=== PATIENT | male | born 1960 | race Caucasian/White ===

== ENCOUNTER 2018-12-14 07:07 | Emergency (ER) | payer MEDICARE ==
[~2018-12-14] VITALS: Ht 185.4 cm; Wt 83.2 kg
[2018-12-14 07:18] VITALS: BP 146/82
[2018-12-14] MEDS ORDERED: clonazePAM 0.5mg tablet PO STA (07:46)
[2018-12-14] MEDS ORDERED: OLANZapine 5mg rapidly disint. tablet PO ONE (07:50)
[2018-12-14] MEDS ORDERED: OLANZapine 2.5MG tablet PO SCH (07:50)
[2018-12-14] MEDS ORDERED: CLON-528 PO (08:18)
[2018-12-14] MEDS ORDERED: LAMO200T2 PO (08:18)
[2018-12-14] MEDS ORDERED: OLAN5TAB3 PO (08:18)
[2018-12-14] MEDS ORDERED: OLAN20TA3 PO (08:18)
== END 2018-12-14 08:34 | disposition home or self-care (01) ==
LOC: ER 07:08
DX: F29 Unspecified psychosis not due to a substance or known physiological condition (principal); F41.9 Anxiety disorder, unspecified; F25.9 Schizoaffective disorder, unspecified; F43.10 Post-traumatic stress disorder, unspecified; M19.90 Unspecified osteoarthritis, unspecified site; G89.29 Other chronic pain; M79.7 Fibromyalgia; Z88.6 Allergy status to analgesic agent; Z88.8 Allergy status to other drugs, medicaments and biological substances; Z91.041 Radiographic dye allergy status; Z79.899 Other long term (current) drug therapy
CPT/HCPCS: 99284

== ENCOUNTER 2021-06-15 17:44 | Emergency (ER) | payer MEDICAID, OTHER ==
[~2021-06-15] VITALS: Ht 185.4 cm; Wt 72.7 kg
[~2021-06-15 17:44] MED LIST: CLON-528 PO; OLAN20TA3 PO; OLAN5TAB3 PO
[2021-06-15 17:53] VITALS: BP 107/74
== END 2021-06-15 20:13 | disposition home or self-care (01) ==
LOC: ER 17:45
DX: J06.9 Acute upper respiratory infection, unspecified (principal); Z20.822 Contact with and (suspected) exposure to COVID-19; G89.29 Other chronic pain; M54.9 Dorsalgia, unspecified; F41.9 Anxiety disorder, unspecified; Z59.00 Homelessness unspecified; Z56.0 Unemployment, unspecified; Z88.6 Allergy status to analgesic agent; Z88.5 Allergy status to narcotic agent; Z88.8 Allergy status to other drugs, medicaments and biological substances
CPT/HCPCS: 87502; 87503; 87635; 99284; C9803

== ENCOUNTER 2024-08-01 18:35 | Emergency (ER) | payer MEDICARE, MEDICAID ==
[~2024-08-01] VITALS: Ht 185.4 cm; Wt 79.1 kg
[~2024-08-01 18:35] MED LIST changes: -CLON-528 PO; +CLON-850 PO; +OLAN-40 PO; -OLAN20TA3 PO
[2024-08-01 18:41] VITALS: BP 147/79; PULSE 87; RESP 16; O2SAT 99
--- NOTE | 2024-08-01 20:01 | Physician Documentation ---
History of Present Illness ~ Chief Complaint: Back Pain Stated Complaint: "LOWER LUMBAR/BACK IS COMPLETELY OUT" Time Seen by MD: 19:08 Primary Medical Doctor: MIGUEL ZURITA Patient is seen today with complaints of acute on chronic low back pain. 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 Patient states he has not really seen a doctor provider in 10 years for this low back pain. Patient states he has an allergy to ketorolac but that is not currently listed in his allergy list and he also states he has short-term and long-term memory loss in his unable to recall what type of allergic reaction he had when he took ketorolac previously. Patient denies any saddle anesthesia or changes in bowel or bladder habits. Patient has no other concern or complaint at this time. Medication Reconciliation Allergies: Coded Allergies: acetaminophen (Verified Allergy, Unknown, 05/13/18) hydrocodone (Verified Allergy, Unknown, 05/13/18) lithium (Verified Allergy, Unknown, 05/13/18) methadone (Verified Allergy, Unknown, 05/13/18) morphine (Verified Allergy, Unknown, 05/13/18) phenytoin (Verified Allergy, Unknown, 05/13/18) Uncoded Allergies: CODEIN (Allergy, Unknown, 05/13/18) CONTRAST (Allergy, Unknown, 05/13/18) Scheduled Clonazepam (Klonopin), 0.5 MG PO BID Olanzapine (Zyprexa), 5 MG PO DAILY Olanzapine (Zyprexa), 1 TAB PO HS Past Medical History Past Medical History: BPH, Arthritis, Chronic Back Pain, Fibromyalgia, *PSYCH*, Anxiety Past Surgical History: no surgical history Alcohol Use: None Drug Use: marijuana Lives In: Homeless Occupation: unemployed Review of Systems Constitutional: Denies: chills, fever, weakness Eyes: Denies: pain, blurred vision ENT: Denies: ear pain, nose pain, throat pain, mouth pain Respiratory: Denies: cough, shortness of breath Cardiovascular: Denies: chest pain, palpitations Gastrointestinal: Denies: abdominal pain, nausea, vomiting Genitourinary: Denies: burning, dysuria Male Genitalia: Denies: penile discharge, testicular pain Neurological: Denies: headache, dizziness Musculoskeletal: Denies: pain, swelling Integumentary: Denies: rash, lesions Allergic/Immunologic: Denies: hives, itching Hematologic/Lymphatic: Denies: no symptoms reported Psychiatric: Denies: depression, anxiety Physical Exam Physical Exam Vital Signs: Temperature: 97.9, Source: Oral, Heart Rate: 87, Respiratory Rate: 16, BP: 147/79, Pulse Oximetry: 99, Weight: 79.090 Oxygen Flow Rate: 0 Physical Exam General: Awake and Alert, no acute distress. HEENT: Conjunctiva pink, Sclera clear, Mucus Membranes moist. Neck: Supple without masses and tenderness. Resp: Unlabored. Lungs clear to auscultation bilaterally. Heart: Regular Rate and rhythm, normal S1 and S2 without murmur, rub or gallop. Musculoskeletal: Patient on exam does have tenderness to palpation of the lower lumbar spine seemingly out of proportion to exam. Patient has decreased range of motion of the lumbar spine in all planes of motion. Patient is neurovascularly intact distally of bilateral lower extremities, strength and motor function are intact distally. Extremities: No cyanosis,clubbing or edema. Skin: Warm and Dry. Progress Results/Orders Results/Orders Orders - LAMBERTO MATA [facility] Lumbar Spine Limited (08/01/24 20:07) Completed Orders - LAMBERTO MATA [facility] Lumbar Spine Limited (08/01/24 20:07) Drug Screen, Urine (08/01/24 20:07) Vital Signs 08/01/24 18:41 Temp 97.9 Pulse 87 Resp 16 B/P (MAP) 147/79 Pulse Ox 99 O2 Flow Rate 0 Laboratory Tests Test 08/01/24 21:00 Urine Opiates Screen Negative Urine Methadone Screen Negative Urine Fentanyl Screen Negative Urine Barbiturates Screen Negative Urine Phencyclidine Screen Negative Urine Amphetamines Screen Positive Urine Benzodiazepines Screen Negative Urine Cocaine Screen Negative Urine Cannabinoids Screen Positive Drug Screen Comment EKG/XRAY/CT/US/VASC/MRI Bone/Soft Tissue X-Ray (Spine) : Additional Comment X-ray of the lumbar spine interpreted by myself today shows no sign of acute fracture, grade 1 anterolisthesis at L5-S1, no osteolytic or blastic lesions. DIAGNOSTIC RADIOLOGY Patient: LINH KEVIN Medical Record: [id number] [facility] : 1960, Age: 63 Sex: Male Location: ER Patient Status: REG ER Service Date/Time: 08/01/242006 Ordering Physician: LAMBERTO MATA PAC Exam: LUMBAR SPINE LIMITED EXAMINATIONS: 3 views of the lumbar spine CLINICAL HISTORY: lower back pain COMPARISON: None Findings and impression: Mild, age indeterminate superior endplate compression deformity of the T12 vertebral body. Disc space narrowing with grade 1 anterolisthesis at L5-S1. This may be a chronic finding. Electronically Signed by:ROD SLATER MD Date & Time: 08/01/242047 Dictated by: ROD SLATRE MD Dictation date and time: 08/01/241954 Primary Care Provider: NO PRIMARY CARE PROVIDER cc: LAMBERTO MATA PAC ~ Medical Decision Making Findings Patient is seen today with complaints of acute on chronic low back pain. 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 Patient states he has not really seen a doctor provider in 10 years for this low back pain. Patient states he has an allergy to ketorolac but that is not currently listed in his allergy list and he also states he has short-term and long-term memory loss in his unable to recall what type of allergic reaction he had when he took ketorolac previously. Patient denies any saddle anesthesia or changes in bowel or bladder habits. Patient has no other concern or complaint at this time. Patient states he has an allergy to ketorolac and Tylenol and most opiate pain meds other than fentanyl and oxycodone. Patient at 1st told me explicitly that he had not had any opiates for 10 years however I checked his cures report today and there are multiple prescriptions for opiates over the last year or so with his last prescription being December of 2023. Patient is exhibiting strong drug-seeking behavior. Patient is exhibiting strong drug-seeking behavior. Patient did leave a urine drug screen however it did test positive for amphetamines and cannabis. Patient left prior to further conversation and further eval and treatment. Departure Disposition: HOME / SELF CARE / HOMELESS Impression: Primary Impression: Drug-seeking behavior Additional Impression: Lumbar sprain Qualified Codes: S33.5XXA - Sprain of ligaments of lumbar spine, initial encounter Discharge Instructions: Chronic Back Pain Additional Instructions: Patient is exhibiting strong drug-seeking behavior. Patient did leave a urine drug screen however it did test positive for amphetamines and cannabis. Patient left prior to further conversation and further eval and treatment. Referrals: NO PRIMARY CARE PROVIDER (PCP) Signature Scribe Signature: No scribe Attestation: No scribe LAMBERTO MATA PAC Aug 01, 2024 20:01
--- NOTE | 2024-08-01 20:50 | RADIOLOGY REPORT ---
EXAMINATIONS: 3 views of the lumbar spine CLINICAL HISTORY: lower back pain COMPARISON: None Findings and impression: Mild, age indeterminate superior endplate compression deformity of the T12 vertebral body. Disc space narrowing with grade 1 anterolisthesis at L5-S1. This may be a chronic finding.
[2024-08-01 21:22] LABS: URINE AMPHETAMINE SCREEN POSITIVE (Neg); URINE BARBITUATE SCREEN NEGATIVE (Neg); URINE BENZODIAZEPINES SCREEN NEGATIVE (Neg); URINE CANNABINOID SCREEN POSITIVE (Neg); URINE COCAINE SCREEN NEGATIVE (Neg); URINE METHADONE SCREEN NEGATIVE (Neg); URINE OPIATE SCREEN NEGATIVE (Neg); URINE PHENCYCLIDINE SCREEN NEGATIVE (Neg)
[2024-08-01 22:00] VITALS: TEMP 97.9
== END 2024-08-01 22:05 | disposition home or self-care (01) ==
LOC: ER 18:35
DX: S33.5XXA Sprain of ligaments of lumbar spine, initial encounter (principal); Z76.5 Malingerer [conscious simulation]; F12.90 Cannabis use, unspecified, uncomplicated; F41.9 Anxiety disorder, unspecified; M19.90 Unspecified osteoarthritis, unspecified site; Z56.0 Unemployment, unspecified; Z59.00 Homelessness unspecified; M79.7 Fibromyalgia; Z88.5 Allergy status to narcotic agent; Z88.8 Allergy status to other drugs, medicaments and biological substances; Z79.899 Other long term (current) drug therapy; X58.XXXA Exposure to other specified factors, initial encounter; Y93.89 Activity, other specified; Y92.89 Other specified places as the place of occurrence of the external cause; Y99.8 Other external cause status
CPT/HCPCS: 72100; 80305; 99284

== ENCOUNTER 2024-10-18 00:49 | Emergency (ER) | payer MEDICARE, MEDICAID ==
--- NOTE | 2024-10-18 03:20 | Physician Documentation ---
History of Present Illness ~ Chief Complaint: Back Pain Stated Complaint: NECK TO LOWER BACK PAIN Time Seen by MD: 03:18 Primary Medical Doctor: MIGUEL Cueva HPI Patient presents to the emergency room for evaluation of chronic back pain seeking answers. He states he is took 200 mg of ibuprofen for his back pain. Seen here recently were x-ray was performed however he left before re- evaluation. Medication Reconciliation Allergies: Coded Allergies: acetaminophen (Verified Allergy, Unknown, 05/13/18) hydrocodone (Verified Allergy, Unknown, 05/13/18) lithium (Verified Allergy, Unknown, 05/13/18) methadone (Verified Allergy, Unknown, 05/13/18) morphine (Verified Allergy, Unknown, 05/13/18) phenytoin (Verified Allergy, Unknown, 05/13/18) Uncoded Allergies: CODEIN (Allergy, Unknown, 05/13/18) CONTRAST (Allergy, Unknown, 05/13/18) Scheduled Clonazepam (Klonopin), 0.5 MG PO BID Olanzapine (Zyprexa), 5 MG PO DAILY Olanzapine (Zyprexa), 1 TAB PO HS Past Medical History Past Medical History: BPH, Arthritis, Chronic Back Pain, Fibromyalgia, *PSYCH*, Anxiety Past Surgical History: no surgical history Alcohol Use: None Drug Use: marijuana Lives In: Homeless Occupation: unemployed Review of Systems ROS All review of systems negative except as per HPI Physical Exam Physical Exam Vital Signs: Temperature: 97.7, Heart Rate: 86, Respiratory Rate: 16, BP: 127/75, Pulse Oximetry: 98 Oxygen Flow Rate: 0 Physical Exam General: Patient is sleeping comfortably, easily arousable in no acute distress Head: Normocephalic and atraumatic. Eyes: Conjunctival normal. EOMI. PERRL. ENT: Mucous membranes moist. Neck: Supple, trachea is midline. Chest: Clear to auscultation bilaterally without rales, rhonchi, or wheezes. There is no accessory muscle use or retractions. Cardiac: RRR without murmurs, gallops, or rubs. Abd: Soft, nondistended, nontender, with normoactive bowel sounds. No guarding, rebound, or rigidity. Extremities: Normal strength. Normal range of motion. No deformities or edema. Back: No midline spinal or CVA tenderness. Able to get up in his bed and walk comfortably without limitations Skin: Warm and dry with no significant rash appreciated. Neuro: Cranial nerves II-XII grossly intact. No focal neuro deficits. Patient am bulating without difficulty. Progress Results/Orders Results/Orders Vital Signs 10/18/24 00:58 Temp 97.7 Pulse 86 Resp 16 B/P (MAP) 127/75 Pulse Ox 98 O2 Flow Rate 0 Medical Decision Making Findings Patient presented to the emergency room with chronic abdominal pain seeking answers. Differentials include but are not limited to cauda equina musculoskeletal pain arthritis aortic pathology. Given patient's history and he had not feel emergent imaging or labs are necessary. I do not feel patient is suffering from a medical emergency. The need to follow up with his doctor for pain management discussed. He was not happy with this Departure Disposition: 01 HOME / SELF CARE / HOMELESS Impression: Primary Impression: Back problem Condition: Stable Discharge Instructions: Chronic Back Pain Referrals: NO PRIMARY CARE PROVIDER (PCP) Signature Scribe Signature: No scribe Attestation: The note accurately reflects work and decisions made by me.Levon Phelan MD 10/18/24 03:27 LEVON PHELAN MD Oct 18, 2024 03:20
[2024-10-18 03:30] VITALS: BP 125/74; PULSE 85; RESP 16; TEMP 98.6; O2SAT 99
== END 2024-10-18 03:30 | disposition home or self-care (01) ==
LOC: ER 00:50
DX: M54.9 Dorsalgia, unspecified (principal); F41.9 Anxiety disorder, unspecified; M19.90 Unspecified osteoarthritis, unspecified site; M79.7 Fibromyalgia; Z88.5 Allergy status to narcotic agent; F12.90 Cannabis use, unspecified, uncomplicated
CPT/HCPCS: 99281

== ENCOUNTER 2024-11-28 07:59 | Outpatient (CLI) | payer MEDICARE, MEDICAID ==
[~2024-11-28 07:59] MED LIST changes: -CLON-850 PO; +LIDO700A47 TP; +LYR75C PO; -OLAN-40 PO; -OLAN5TAB3 PO; +OXYC1TAB17 PO; +PRAZ1CAP5 PO; +TRAZ-251 PO; +tamsulosin capsule PO
[2024-11-28] MEDS ORDERED: GADOTERATE MEGLUMINE 7.5 MMOL/15 ML VIAL IV ONE (09:37)
--- NOTE | 2024-11-28 11:09 | RADIOLOGY REPORT ---
[facility] EXAMINATION: MR MRI HEAD INDICATION: MEMORY IMPAIRMENT COMPARISON: None TECHNIQUE: Multiplanar, multisequence magnetic resonance imaging of the brain was performed without the use of intravenous contrast. FINDINGS: No evidence of acute or remote infarct. No intracranial hemorrhage. No mass effect. There is periventricular/deep white matter T2/FLAIR hyperintensity is nonspecific, but most commonly associated with chronic microvascular disease. The ventricles and sulci are normal in size for age. Clear basal cisterns. Flow voids in the major intracranial vessels are maintained. No abnormality of the orbits. Paranasal sinuses and mastoid air cells are clear. No abnormality of the visualized osseous structures and extracranial soft tissues. IMPRESSION: No acute infarct, intracranial hemorrhage, mass effect, or hydrocephalus.
== END 2024-11-28 23:59 | disposition home or self-care (01) ==
LOC: MRI 07:59
PROVIDERS: ATTEND Student in an Organized Health Care Education/Training Program
DX: R41.3 Other amnesia (principal); M54.50 Low back pain, unspecified
CPT/HCPCS: 70553; A9575

== ENCOUNTER → 2024-12-02 | Outpatient (CLI) | payer MEDICARE, MEDICAID ==
--- NOTE | 2024-12-02 09:39 | RADIOLOGY REPORT ---
EXAM: MR MRI LUMBAR SPINE CLINICAL HISTORY: LOW BACK PAIN COMPARISON: DI LUMBAR SPINE LIMITED on DOS: 08/01/24 TECHNIQUE: MRI imaging of the lumbar was performed on a MRI imaging system without intravenous contrast. FINDINGS GENERAL Abdominal aortic aneurysm measuring up to 33.60 mm. Multilevel disc degeneration. Alignment: No spondylolisthesis identified. Vertebrae: Moderate compression deformity of the L1 vertebral body with 35% height loss. Conus: Conus medullaris terminates at the T12-L1 level. T12-L1: Disc desiccation. Mild right subarticular zone stenosis. No neural foraminal stenosis. Facet arthrosis. L1-2: The disc configuration is normal. No spinal canal or neural foraminal stenosis. The facet joints are normal. L2-3: Disc desiccation and 5.75 mm disc bulge. Mild bilateral subarticular zone stenosis. Mild bilateral foraminal stenosis. Facet arthrosis. L3-4: Disc desiccation and 6.75 mm disc bulge. Mild spinal canal stenosis. Moderate bilateral subarticular zone stenosis. Moderate right and mild left foraminal stenosis. Facet arthrosis. L4-5: The disc configuration is normal. No spinal canal stenosis. Mild left foraminal stenosis. Facet arthrosis. L5-S1: Disc desiccation and disc bulge. Moderate disc height loss. No spinal canal stenosis. Moderate bilateral foraminal stenosis. Facet arthrosis. IMPRESSION: 1. Enlarged aorta measuring up to 33.60 mm at T12-L1 level. Multilevel disc degeneration. Moderate compression deformity of L1 with 35% height loss. Multilevel subarticular zone stenosis, most pronounced and moderate at L3-L4. Multilevel foraminal stenosis, most pronounced and moderate at L5-S1. Mild spinal canal stenosis at L3-L4 level.
== END | disposition home or self-care (01) ==
LOC: MRI02 08:18
PROVIDERS: ATTEND Student in an Organized Health Care Education/Training Program
DX: M51.17 Intervertebral disc disorders with radiculopathy, lumbosacral region (principal); M54.50 Low back pain, unspecified; I71.40 Abdominal aortic aneurysm, without rupture, unspecified; M48.05 Spinal stenosis, thoracolumbar region; R41.3 Other amnesia; E78.5 Hyperlipidemia, unspecified; G40.909 Epilepsy, unspecified, not intractable, without status epilepticus; M43.8X6 Other specified deforming dorsopathies, lumbar region; M48.07 Spinal stenosis, lumbosacral region; M47.817 Spondylosis without myelopathy or radiculopathy, lumbosacral region
CPT/HCPCS: 72148

== ENCOUNTER 2024-12-19 14:35 | Emergency (ER) | payer MEDICARE, MEDICAID ==
[~2024-12-19] VITALS: Ht 185.4 cm; Wt 75.5 kg
[2024-12-19 15:49] LABS: CREATININE 0.88 MG/DL (0.60-1.10); ETHANOL < 10 MG/DL (<10); TOTAL CARBON DIOXIDE 31.4 MMOL/L (24-32); eCRCL 92 ML/MIN; eGFR 87 ML/MIN
[2024-12-19 15:52] LABS: MEAN PLATELET VOLUME 6.9 FL (7.4-10.4); RED CELL DISTRIBUTION WIDTH 14.1 % (11.5-14.5)
--- NOTE | 2024-12-19 16:18 | Physician Documentation ---
History of Present Illness ~ Chief Complaint: Mental Health Eval Stated Complaint: SI Time Seen by MD: 14:47 Primary Medical Doctor: MIGUEL Cueva [facility] This is a 64-year-old male with a history of schizophrenia, methamphetamine abuse, pain chronic low back pain with bilateral sciatica who presents with suicidal ideations and auditory hallucinations after relapsing and using m ethamphetamine yesterday. Patient reports suicidal ideation with a plan to overdose on prescribed medications. Patient additionally concerned about his low back pain and being out of prescribed pain medications for low back pain. Patient reports no new weakness or numbness in legs and no loss of bowel or bladder control. Patient reports no other acute symptoms or concerns. Medication Reconciliation Allergies: Coded Allergies: hydrocodone (Verified Allergy, Unknown, 12/19/24) lithium (Verified Allergy, Unknown, 12/19/24) methadone (Verified Allergy, Unknown, 12/19/24) morphine (Verified Allergy, Unknown, 12/19/24) phenytoin (Verified Allergy, Unknown, 12/19/24) Uncoded Allergies: CODEIN (Allergy, Unknown, 05/13/18) CONTRAST (Allergy, Unknown, 05/13/18) Scheduled Prazosin Hcl (Prazosin Hcl), 1 CAP PO HS, (Reported) Pregabalin (Pregabalin), 1 CAP PO BID, (Reported) Propranolol Hcl (Propranolol Hcl), 1 TAB PO BID, (Reported) Risperidone (Risperidone), 1 TAB PO BID, (Reported) Tamsulosin Hcl* (Flomax*), 1 CAP PO HS, (Reported) Trazodone HCl (Trazodone HCl), 1 TAB PO HS, (Reported) Discontinued Medications Lidocaine (Lidocaine), 1 PATCH TP DAILY Discontinued Reason: patient no longer taking Oxycodone Hcl/Acetaminophen (Oxycodone-Acetaminophen 10-325), 1 TAB PO Q8H PRN for moderate or severe pain 4-10 Discontinued Reason: patient no longer taking Past Medical History Past Medical History: BPH, Arthritis, Chronic Back Pain, Fibromyalgia, *PSYCH*, Anxiety Past Surgical History: no surgical history Patient History: FH: heart attack FATHER, Onset:40's - 50 FH: kidney disease Alcohol Use: None Drug Use: marijuana Lives In: Homeless Occupation: unemployed Review of Systems ROS As stated above in the HPI, otherwise all systems are reviewed and negative. Physical Exam Vital Signs: Temperature: 97.5, Source: Temporal, Heart Rate: 100, Respiratory Rate: 16, BP: 165/95, Pulse Oximetry: 99, Weight: 75.500 Oxygen Flow Rate: 0 Physical Exam VITALS: Reviewed and as above. GENERAL: Alert, nontoxic appearing, no apparent distress. HEENT: PERRLA, EOMI RESPIRATORY: No increased work of breathing, no respiratory distress, speaking in full clear sentences, clear lung sounds in all jack CV: Regular rate and rhythm no murmur BACK: Tenderness to lower lumbar area, no focal central spinal tenderness, no step-offs, no crepitus. No CVA tenderness GI: Soft nontender, no rebound, no guarding, nondistended, bowel sounds present SKIN: Warm and dry NEURO: GCS 15 PSYCH: Making statements of SI Progress Results/Orders Results/Orders Orders - CINTHYA HILL Med Rec (12/19/24 15:20) 1799.11 (12/19/24 15:20) Close Observation Level (12/19/24 15:20) Covid19 Binax Poc Result Entry (12/19/24 15:20) Regular Diet (12/19/24 Dinner) Risperidone Tablet (Risperdal Tablet) (12/19/24 20:00) Tamsulosin Capsule (Flomax Capsule) (12/19/24 21:00) Prazosin Capsule (Minipress Capsule) (12/19/24 21:00) Pregabalin Capsule (Lyrica Capsule) (12/19/24 20:00) Propanolol Tablet (Inderal Tablet) (12/19/24 20:00) Trazodone Tablet (Desyrel Tablet) (12/19/24 21:00) Store Meds In Pharmacy (Store Meds In (12/19/24 19:35) Completed Orders - CINTHYA HILL Cbc/Diff (12/19/24 15:20) Urinalysis (12/19/24 15:20) Drug Screen, Urine (12/19/24 15:20) Ethanol (12/19/24 15:20) BMP (12/19/24 15:20) Stat Ekg (12/19/24 17:17) Acetaminophen (12/19/24 15:28) Electrocardiogram (12/19/24 21:00) Medications Received in ER Medications (Trade) Dose Ordered Sig/Mi Route PRN Reason Start Time Stop Time Status Last Admin Dose Admin (Flomax capsule) 0.4 mg HS PO 12/19/24 21:00 12/19/24 21:30 0.4 MG Vital Signs 12/19/24 12/19/24 12/19/24 12/19/24 14:38 16:42 20:32 22:38 Temp 97.5 98.4 Pulse 100 82 Resp 16 16 B/P (MAP) 165/95 110/61 (77) Pulse Ox 99 98 O2 Flow Rate 0 12/20/24 00:33 Pulse 70 Resp 17 B/P (MAP) 128/77 (94) Pulse Ox 99 O2 Flow Rate 0 Laboratory Tests Test 12/19/24 15:28 12/19/24 15:47 12/19/24 15:55 White Blood Count 4.7 Red Blood Count 4.12 L Hemoglobin 12.3 L Hematocrit 35.9 L Mean Corpuscular Volume 87.1 Mean Corpuscular Hemoglobin 29.8 Mean Corpuscular Hemoglobin Concent 34.2 Red Cell Distribution Width 14.1 Platelet Count 264 Mean Platelet Volume 6.9 L Neutrophils (%) (Auto) 54.6 Lymphocytes (%) (Auto) 25.6 Monocytes (%) (Auto) 13.8 H Eosinophils (%) (Auto) 4.7 Basophils (%) (Auto) 1.3 H Neutrophils # (Auto) 2.6 Lymphocytes # (Auto) 1.2 Monocytes # (Auto) 0.7 Eosinophils # (Auto) 0.2 Basophils # (Auto) 0.1 CBC Comment Sodium Level 138 Potassium Level 3.9 Chloride Level 104 Carbon Dioxide Level 31.4 Anion Gap 3 L Blood Urea Nitrogen 9 Creatinine 0.88 Estimated GFR/1.73 m2 87 BUN/Creatinine Ratio 10.2 Glucose Level 130 H Calcium Level 8.4 L Albumin 3.5 Chemistry Comments Acetaminophen Level < 2.0 L Ethyl Alcohol Level < 10 SARS-CoV-2 Antigen (Rapid) Negative Urine Specimen Description Voided Urine Color Yellow Urine Clarity Clear Urine pH 6.5 Urine Specific [place] 1.020 Urine Protein Negative Urine Glucose (UA) Negative Urine Ketones Negative Urine Occult Blood Negative Urine Nitrite Negative Urine Bilirubin Negative Urine Urobilinogen 1.0 Urine Leukocyte Esterase Negative Volume Urine Centrifuged 10 ml Urine Comment Urine Opiates Screen Negative Urine Methadone Screen Negative Urine Fentanyl Screen Negative Urine Barbiturates Screen Negative Urine Phencyclidine Screen Negative Urine Amphetamines Screen Positive Urine Benzodiazepines Screen Negative Urine Cocaine Screen Negative Urine Cannabinoids Screen Positive Drug Screen Comment EKG/XRAY/CT/US/VASC/MRI EKG #1: Additional Comment EKG at 1728 interpreted by myself as sinus rhythm at a rate of 71, normal axis, no ST segment elevation or depression, QTC within normal limits EKG #2: Additional Comment EKG at 1926 interpreted by myself as: Sinus rhythm at a rate of 82, normal axis, no ST segment elevation or depression, QTC within normal limits, unchanged from previous EKG Medical Decision Making Additional information obtaine: old records Findings This 64-year-old male with a history of schizophrenia and methamphetamine abuse presents to the emergency department with suicidal ideation with active plan to overdose on all prescribed medications, patient reports recent methamphetamine abuse and currently experiencing auditory hallucinations. Patient had additional concern for chronic low back pain though patient reports this is well managed with prescribed medications which he has run out of, reassuringly patient reported no back pain red flags including no new weakness or numbness in legs and no loss of bowel or bladder control. Additionally patient had recent MRI without findings to suggest neurologic emergency. Patient is otherwise well-appearing and reports no other acute symptoms or concerns. Of concern patient reported to nursing staff that he took a triple dose of his prescribed medications this morning at approximately 10:00 a.m., nursing staff contacted poison control who made several recommendations including monitoring for 6-8 hours, aspirin and acetaminophen levels, EKGs and initiation of bicarb drip. Given time of ingestion, the fact patient is hemodynamically stable, and the lack of symptoms consistent with overdose on prescribed medications bicarb drip not felt appropriate at this time, 1st EKG and repeat EKG without abnormality and unchanged, labs did not demonstrate evidence of metabolic electrolyte disturbance and toxicology report demonstrated no increased acetaminophen or aspirin level. As ingestion has been over 8 hours and patient has been monitored for at least 6 hours in the emergency department without evidence of symptoms or abnormal vital signs along with serial EKGs without abnormality and labs without abnormality patient is medically cleared evaluation by [facility]. Transfer orders for [facility]: At this time there is no evidence of an emergent medical condition that would preclude (admission/transfer) to a psychiatric unit via [facility] protocol for further psychiatric, as well as medical evaluation and treatment. At this time I have no reason to believe that transfer via [facility] protocol would have serious medical compromise in the patient's health. Differential Dx:Considerations: Include: Alcohol abuse, Anxiety, Bipolar disor manda, Conversion disorder, Depression, Encephaloathy, Homicidal, Panic disorder, Personality disorder, Schizophrenia, Substance abuse, Suicidal, Other (Medication overdose, dysrhythmia,) Departure Time of Disposition: 19:54 [facility] Impression: Primary Impression: Suicidal ideation Additional Impression: Chronic low back pain with bilateral sciatica Qualified Codes: M54.42 - Lumbago with sciatica, left side; M54.41 - Lumbago with sciatica, right side; G89.29 - Other chronic pain Condition: Improved Additional Instructions: Transfer orders for [facility]: At this time there is no evidence of an emergent medical condition that would preclude (admission/transfer) to a psychiatric unit via [facility] protocol for further psychiatric, as well as medical evaluation and treatment. At this time I have no reason to believe that transfer via [facility] protocol would have serious medical compromise in the patient's health. Referrals: NO PRIMARY CARE PROVIDER (PCP) Signature Scribe Signature: No Scribe Attestation: The note accurately reflects work and decisions made by me.LAUREN Collado 12/20/24 01:00 CINTHYA HILL Dec 19, 2024 16:17
[2024-12-19 16:44] LABS: LEUKOCYTE ESTERASE ,URINE NEGATIVE (Neg); NITRITES, URINE NEGATIVE (Neg); OCCULT BLOOD,URINE NEGATIVE (Neg)
[2024-12-19] MEDS ORDERED: PROP20TA6 PO (16:47)
[2024-12-19] MEDS ORDERED: RISP-32 PO (16:47)
[2024-12-19 16:53] LABS: UA COLLECTION TYPE VOIDED
[2024-12-19 16:56] LABS: URINE AMPHETAMINE SCREEN POSITIVE (Neg); URINE BARBITUATE SCREEN NEGATIVE (Neg); URINE BENZODIAZEPINES SCREEN NEGATIVE (Neg); URINE CANNABINOID SCREEN POSITIVE (Neg); URINE COCAINE SCREEN NEGATIVE (Neg); URINE METHADONE SCREEN NEGATIVE (Neg); URINE OPIATE SCREEN NEGATIVE (Neg); URINE PHENCYCLIDINE SCREEN NEGATIVE (Neg)
[2024-12-19] MEDS ORDERED: PREG150C47 PO (17:26)
[2024-12-19] MEDS ORDERED: TAMS-55 PO (17:26)
[2024-12-19] MEDS ORDERED: PRAZ2CAP2 PO (17:26)
[2024-12-19] MEDS ORDERED: TRAZ300T2 PO (17:26)
--- NOTE | 2024-12-19 17:31 | ELECTROCARDIOGRAPH REPORT ---
[facility] Test Date: 2024-12-19 Test Time: 17:28:53 Pat Name: LINH KEVIN Department: [facility]-ER Patient ID: [facility]-[id number] Room: Gender: M Guest Relation Officer: : 1960 Requested By: CINTHYA HILL Order Number: [id number] Reading MD: Dr. CATARINA Bowers Measurements Intervals [place] Rate: 71 P: 46 MO: 145 QRS: 77 QRSD: 92 T: 53 QT: 376 QTc: 409 Interpretive Statements Sinus rhythm Baseline wander in lead(s) V2 Electronically Signed On 12-21-2024 19:23:[address] CATARINA Bowers Please click the below link to view image of tracing.
--- NOTE | 2024-12-19 19:28 | ELECTROCARDIOGRAPH REPORT ---
[facility] Test Date: 2024-12-19 Test Time: 19:26:33 Pat Name: LINH KEVIN Department: [facility]-ER Patient ID: [facility]-[id number] Room: Gender: M Manager [place] : 1960 Requested By: CINTHYA HILL Order Number: [id number] Reading MD: Dr. CATARINA Bowers Measurements Intervals [place] Rate: 82 P: 35 NM: 134 QRS: 78 QRSD: 89 T: 79 QT: 365 QTc: 427 Interpretive Statements Sinus rhythm Electronically Signed On 12-22-2024 17:37:[address] CATARINA Bowers Please click the below link to view image of tracing.
[2024-12-19] MEDS: propranolol 10mg tablet PO SCH (20:00)
[2024-12-20] MEDS: ibuprofen tablet 400 MG TABLET PO ONE ×2 (08:37→19:35)
[2024-12-21 15:16] VITALS: BP 103/75; PULSE 78; RESP 13; TEMP 98.6; O2SAT 99
== END 2024-12-21 15:19 ==
LOC: ER 14:35
DX: R45.851 Suicidal ideations (principal); M54.41 Lumbago with sciatica, right side; M54.42 Lumbago with sciatica, left side; F41.9 Anxiety disorder, unspecified; F20.9 Schizophrenia, unspecified; M79.7 Fibromyalgia; F12.90 Cannabis use, unspecified, uncomplicated; F15.90 Other stimulant use, unspecified, uncomplicated; Z88.5 Allergy status to narcotic agent; Z20.822 Contact with and (suspected) exposure to COVID-19; Z79.899 Other long term (current) drug therapy
CPT/HCPCS: 36415; 80048; 80305; 80329; 81003; 85025; 87811; 93005; 99285; G0480; 80320

== ENCOUNTER 2025-01-04 03:08 | Emergency (ER) | payer MEDICARE, MEDICAID ==
[~2025-01-04] VITALS: Ht 185.4 cm; Wt 75.5 kg
[~2025-01-04 03:08] MED LIST changes: -LIDO700A47 TP; -LYR75C PO; -OXYC1TAB17 PO; -PRAZ1CAP5 PO; +PRAZ2CAP2 PO; +PREG150C47 PO; +PROP20TA6 PO; +RISP-32 PO; +TAMS-55 PO; -TRAZ-251 PO; +TRAZ300T2 PO; -tamsulosin capsule PO
[2025-01-04 05:31] VITALS: BP 134/92; PULSE 80; RESP 16; TEMP 98; O2SAT 98
[2025-01-04] MEDS: triamcinolone acetonide 40mg/ml inj IM ONE (05:39)
[2025-01-04] MEDS: orphenadrine citrate 60mg/2ml inj. IM ONE (05:39)
--- NOTE | 2025-01-04 05:41 | Physician Documentation ---
History of Present Illness ~ Chief Complaint: Back Pain Stated Complaint: BACK PAIN Time Seen by MD: 05:29 OK to notify your PCP?: Yes Primary Medical Doctor: MIGUEL Cueva Source: patient, RN/, RN notes reviewed, old records Mode of Arrival: POV Exam Limitations: no limitations HPI Patient states that he has a history of back pain. It has been going on for over a year. Reason why he came in today's because this just getting worse and worse every day. He did have a MRI a month ago does not know the results but he has not appointment today at 8:00 a.m. with his primary care doctor to talk about it with the his sciatica his low back pain bilaterally radiating down his legs walks with a limp he is very stiff denies any bowel or bladder incontinence. He looks uncomfortable. He takes Lyrica for chronic pain. He states it does not seem to be helping that much. Medication Reconciliation Allergies: Coded Allergies: hydrocodone (Verified Allergy, Unknown, 12/19/24) lithium (Verified Allergy, Unknown, 12/19/24) methadone (Verified Allergy, Unknown, 12/19/24) morphine (Verified Allergy, Unknown, 12/19/24) phenytoin (Verified Allergy, Unknown, 12/19/24) Uncoded Allergies: CODEIN (Allergy, Unknown, 05/13/18) CONTRAST (Allergy, Unknown, 05/13/18) Scheduled Prazosin Hcl (Prazosin Hcl), 1 CAP PO HS, (Reported) Pregabalin (Pregabalin), 1 CAP PO BID, (Reported) Propranolol Hcl (Propranolol Hcl), 1 TAB PO BID, (Reported) Risperidone (Risperidone), 1 TAB PO BID, (Reported) Tamsulosin Hcl* (Flomax*), 1 CAP PO HS, (Reported) Trazodone HCl (Trazodone HCl), 1 TAB PO HS, (Reported) Past Medical History Past Medical History: BPH, Arthritis, Chronic Back Pain, Fibromyalgia, *PSYCH*, Anxiety Past Surgical History: no surgical history Patient History: FH: heart attack FATHER, Onset:40's - 50 FH: kidney disease Alcohol Use: None Drug Use: marijuana Lives In: Homeless Occupation: unemployed Review of Systems All Other Systems at this time: Reviewed and Negative Physical Exam Physical Exam Vital Signs: RN Vital Signs have been reviewed: Yes, Temperature: 98.0, Source: Oral, Heart Rate: 80, Respiratory Rate: 16, BP: 134/92, Pulse Oximetry: 98, [place] ght: 75.500 Oxygen Flow Rate: 0 Physical Exam General: The patient is well developed, well nourished, nontoxic appearing and is in no acute distress. Skin: [place], warm and dry with no rashes. HEENT: Head was normocephalic and atraumatic. Eyes - pupils equal, round, reactive to light and accommodation. Extraocular movements were intact. Conjunctivae were nonicteric. Neck: Supple and nontender. There was no jugular venous distention, lymphadenopathy, thyromegaly or masses. Chest: Clear to auscultation bilaterally without wheezes, rales or rhonchi. No accessory muscle use. Heart: Rate regular and rhythmic. S1, S2. No murmurs. Palpation of the chest wall was normal. Abdomen: Soft, nontender and nondistended. Positive bowel sounds. No guarding or rebound. No hepatosplenomegaly or palpable masses. Extremities: No cyanosis, clubbing or edema. The patient moves all extremities. Pulses were equal and symmetric. Back: Diffuse L4 L3 bilateral paraspinal tenderness no point tenderness. Positive straight leg test bilaterally at 30 reflex on the left slightly decreased compared to the right Neurologic: Motor sensory grossly intact Psychologic: The patient was oriented to person, place and time. The patient demonstrated appropriate judgement and insight. Progress Results/Orders Reviewed/noted all lab results: Yes Results/Orders Orders - STEFANY APARICIO MD Triamcinolone Acet 40mg/Ml Inj (Kenalog- (01/04/25 05:35) Norflex Im (01/04/25 05:35) Vital Signs 01/04/25 01/04/25 03:16 05:31 Temp 98.0 98.0 Pulse 71 80 Resp 16 16 B/P (MAP) 119/78 134/92 (106) Pulse Ox 99 98 O2 Flow Rate 0 0 Re-Evaluation Re-Evaluation : Re-Evaluation: Improved Progress Patient was seen and examined. Patient is given reassurance. Patient received Decadron 40 IM as well as Norflex 60 IM. Patient was going to see his primary care physician today so no prescriptions were written at this time. Patient seems to be in significant discomfort already has not MRI the and certain results are obtainable in the few hours. Patient is encouraged not to miss his appointment and after treatment was given discharge instructions. Medical Decision Making Additional information obtaine: old records Findings Radiculopathy versus cord compression versus for deeper body compression fractures disc disease was all considered Differential Dx:Considerations: DJD, Musculoskeletal pain, Strain, Other Departure Disposition: HOME / SELF CARE / HOMELESS Impression: Primary Impression: Low back pain Qualified Codes: M54.42 - Lumbago with sciatica, left side; M54.41 - Lumbago with sciatica, right side Additional Impression: Sciatica Qualified Codes: M54.31 - Sciatica, right side; M54.32 - Sciatica, left side Discharge Instructions: Chronic Back Pain, Sciatica Referrals: NO PRIMARY CARE PROVIDER (PCP) Education Educated: Patient Educated regarding: diagnosis, prognosis Signature Scribe Signature: n Attestation: The note accurately reflects work and decisions made by me.Stefany Aparicio MD 01/04/25 05:40 STEFANY APARICIO MD Jan 04, 2025 05:40
== END 2025-01-04 05:46 | disposition home or self-care (01) ==
LOC: ER 03:08
DX: M54.41 Lumbago with sciatica, right side (principal); M54.42 Lumbago with sciatica, left side; M79.7 Fibromyalgia; F41.9 Anxiety disorder, unspecified; M19.90 Unspecified osteoarthritis, unspecified site; Z88.5 Allergy status to narcotic agent; Z88.8 Allergy status to other drugs, medicaments and biological substances; Z79.899 Other long term (current) drug therapy; Z59.00 Homelessness unspecified; Z56.0 Unemployment, unspecified; F12.90 Cannabis use, unspecified, uncomplicated
CPT/HCPCS: 96372; 99284; J2360; J3301

== ENCOUNTER 2025-01-26 14:42 | Emergency (ER) | payer MEDICARE, MEDICAID ==
[~2025-01-26] VITALS: Ht 188 cm; Wt 79.5 kg
[2025-01-26 14:45] VITALS: TEMP 98.3
--- NOTE | 2025-01-26 14:49 | ELECTROCARDIOGRAPH REPORT ---
[facility] Test Date: 2025-01-26 Test Time: 14:47:32 Pat Name: LINH KEVIN Department: EMERGENCY ROOM Room: Gender: M Thoracic Medicine Specialist: ANTONY : 1960 Requested By: HUI CARTER Order Number: [id number] Reading MD: Measurements Intervals [place] Rate: 83 P: 66 IN: 136 QRS: 67 QRSD: 86 T: 78 QT: 367 QTc: 432 Interpretive Statements Sinus rhythm Multiple ventricular premature complexes Please click the below link to view image of tracing.
--- NOTE | 2025-01-26 14:50 | Physician Documentation ---
History of Present Illness ~ Stated Complaint: CP Time Seen by MD: 15:01 [facility] HPI Patient is a 64-year-old male that presents to the emergency department for evaluation of chest pain since 0 900 this morning. Patient reports that he has become progressively worse throughout the day and more so over the last hour. Patient reports utilizing methamphetamine approximately 2 g on Thursday with in MDA and fentanyl at the same time. Patient denies any use of methamphetamine today. Patient reports that the pain has become progressive in his chest moving to his shoulders and up his left jaw. Patient denies lightheadedness syncope headache, patient reports nausea vomiting this morning prior to chest pain starting. Medication Reconciliation Allergies: Coded Allergies: hydrocodone (Verified Allergy, Unknown, 12/19/24) lithium (Verified Allergy, Unknown, 12/19/24) methadone (Verified Allergy, Unknown, 12/19/24) morphine (Verified Allergy, Unknown, 12/19/24) phenytoin (Verified Allergy, Unknown, 12/19/24) Uncoded Allergies: CODEIN (Allergy, Unknown, 05/13/18) CONTRAST (Allergy, Unknown, 05/13/18) Scheduled Prazosin Hcl (Prazosin Hcl), 1 CAP PO HS, (Reported) Pregabalin (Pregabalin), 1 CAP PO BID, (Reported) Propranolol Hcl (Propranolol Hcl), 1 TAB PO BID, (Reported) Risperidone (Risperidone), 1 TAB PO BID, (Reported) Tamsulosin Hcl* (Flomax*), 1 CAP PO HS, (Reported) Trazodone HCl (Trazodone HCl), 1 TAB PO HS, (Reported) Past Medical History Past Medical History: BPH, Arthritis, Chronic Back Pain, Fibromyalgia, *PSYCH*, Anxiety Past Surgical History: no surgical history Patient History: FH: heart attack FATHER, Onset:40's - 50 FH: kidney disease Alcohol Use: None Drug Use: marijuana Lives In: Homeless Occupation: unemployed Progress Results/Orders Results/Orders Orders - OHLHUI LEVY MD Chest,Single View (01/26/25 14:43) Monitor (01/26/25 14:43) Saline Lock (01/26/25 14:43) Oxygen (01/26/25 14:43) Completed Orders - HUI WHITTAKER MD Chest,Single View (01/26/25 14:43) Cbc/Diff (01/26/25 14:43) BMP (01/26/25 14:43) PBNP (01/26/25 14:43) Electrocardiogram (01/26/25 14:43) Hs Troponin I W Calculations (01/26/25 14:43) Hs Troponin I W Calculations (01/26/25 16:43) Mag & Alum Hydrox/Simeth Susp (Maalox Or (01/26/25 16:05) Ondansetron Disint. Tablet (Zofran Odt T (01/26/25 16:05) Vital Signs 01/26/25 01/26/25 01/26/25 01/26/25 14:45 15:12 15:30 16:49 Temp 98.3 Pulse 83 80 75 Resp 20 14 20 18 B/P (MAP) 143/89 (107) 139/90 (106) Pulse Ox 97 98 96 O2 Flow Rate 0 0 0 01/26/25 17:34 Pulse 84 Resp 14 B/P (MAP) 139/86 Pulse Ox 96 Laboratory Tests Test 01/26/25 14:51 01/26/25 16:55 White Blood Count 10.0 Red Blood Count 4.90 Hemoglobin 14.4 Hematocrit 42.3 Mean Corpuscular Volume 86.4 Mean Corpuscular Hemoglobin 29.4 Mean Corpuscular Hemoglobin Concent 34.0 Red Cell Distribution Width 14.6 H Platelet Count 372 Mean Platelet Volume 6.3 L Neutrophils (%) (Auto) 80.2 H Lymphocytes (%) (Auto) 11.5 L Monocytes (%) (Auto) 6.6 Eosinophils (%) (Auto) 0.8 Basophils (%) (Auto) 0.9 Neutrophils # (Auto) 8.0 H Lymphocytes # (Auto) 1.2 Monocytes # (Auto) 0.7 Eosinophils # (Auto) 0.1 Basophils # (Auto) 0.1 CBC Comment Sodium Level 137 Potassium Level 4.3 Chloride Level 101 Carbon Dioxide Level 26.7 Anion Gap 9 Blood Urea Nitrogen 17 Creatinine 0.84 Estimated GFR/1.73 m2 > 90 BUN/Creatinine Ratio 20.2 H Glucose Level 135 H Calcium Level 9.2 Troponin I High Sensitivity 10 10 Pro-B-Type Natriuretic Peptide < 30 Albumin 3.9 Chemistry Comments Troponin I High Sens Percent Delta 0 Troponin I Hi Sens Absolute Change 0 EKG/XRAY/CT/US/VASC/MRI Chest X-Ray : Additional Comments Patient: LINH KEVIN Medical Record: [id number] [facility] : 1960, Age: 64 Sex: Male Location: ER Patient Status: REG ER Service Date/Time: 01/26/25/ 1443 Ordering Physician: HUI WHITTAKER MD Exam: CHEST,SINGLE VIEW CHEST RADIOGRAPH INDICATION: CP TECHNIQUE: Single frontal view of the chest was obtained COMPARISON: DI CHEST,SINGLE VIEW on DOS: 10/31/24 FINDINGS: Lines and Tubes: None Lungs: Clear Pleura: No effusion. No pneumothorax. Cardiomediastinal contours: Unremarkable Bones: Unremarkable IMPRESSION: No acute disease. Electronically Signed by:FRANTZ JENSEN MD Date & Time: 01/26/25 1506 Dictated by: FRANTZ JENSEN MD Dictation date and time: 01/26/25 1455 Primary Care Provider: NO PRIMARY CARE PROVIDER cc: HUI WHITTAKER MD ~ Medical Decision Making Additional information obtaine: old records Findings The patient had a complaint of chest pain the patient had a negative troponin and nonischemic appearing EKG he also had improvement with a GI cocktail. The patient's previous hospitalizations has been reviewed. The patient has a history of coronary artery disease. The patient's chest x-ray was interpreted by me as showing a normal-appearing cardiac silhouette normal-appearing mediastinum and normal-appearing lung jack interpreted the x-ray as showing no acute disease process. The patient will be discharged with instructions to return for worsening of his symptoms. Heart Score: 2 Differential Dx:Considerations: Include: angina, aortic dissection, chest wall pain, esophageal reflux/spasm, gastritis Departure Disposition: HOME / SELF CARE / HOMELESS Impression: Primary Impression: Chest pain Qualified Codes: R07.9 - Chest pain, unspecified Additional Impression: Methamphetamine abuse Discharge Instructions: Nonspecific Chest Pain, Adult Referrals: NO PRIMARY CARE PROVIDER (PCP) Signature Scribe Signature: No scribe Attestation: The note accurately reflects work and decisions made by me.Hui Whittaker MD 01/28/25 20:20 MAYNOR HOWE Jan 26, 2025 14:50 HUI WHITTAKER MD Jan 26, 2025 16:05
--- NOTE | 2025-01-26 15:08 | RADIOLOGY REPORT ---
CHEST RADIOGRAPH INDICATION: CP TECHNIQUE: Single frontal view of the chest was obtained COMPARISON: DI CHEST,SINGLE VIEW on DOS: 10/31/24 FINDINGS: Lines and Tubes: None Lungs: Clear Pleura: No effusion. No pneumothorax. Cardiomediastinal contours: Unremarkable Bones: Unremarkable IMPRESSION: No acute disease.
[2025-01-26 15:18] LABS: MEAN PLATELET VOLUME 6.3 FL (7.4-10.4); RED CELL DISTRIBUTION WIDTH 14.6 % (11.5-14.5)
[2025-01-26 15:24] LABS: CREATININE 0.84 MG/DL (0.60-1.10); PRO BRAIN NATRIURETIC PEPTIDE < 30 PG/ML (0-125); TOTAL CARBON DIOXIDE 26.7 MMOL/L (24-32); eCRCL 101 ML/MIN; eGFR > 90 ML/MIN
[2025-01-26] MEDS: ondansetron 4mg rapidly disintigrating tab PO ONE (16:18)
[2025-01-26] MEDS: mag hydrox/Alum hydrox/simeth 30ml oral suspension PO ONE (16:18)
[2025-01-26 17:34] VITALS: BP 139/86; PULSE 84; RESP 14; O2SAT 96
== END 2025-01-26 17:00 | disposition home or self-care (01) ==
LOC: ER 14:43
DX: R07.9 Chest pain, unspecified (principal); F15.10 Other stimulant abuse, uncomplicated; F12.90 Cannabis use, unspecified, uncomplicated; M19.90 Unspecified osteoarthritis, unspecified site; M79.7 Fibromyalgia; G89.29 Other chronic pain; F41.9 Anxiety disorder, unspecified; Z88.5 Allergy status to narcotic agent; Z79.899 Other long term (current) drug therapy; Z88.8 Allergy status to other drugs, medicaments and biological substances; Z59.00 Homelessness unspecified; Z56.0 Unemployment, unspecified
CPT/HCPCS: 36415; 71045; 80048; 83880; 84484; 85025; 93005; 99285